=== PATIENT | male | born 1955 | race Caucasian/White ===

== ENCOUNTER 2017-10-05 22:03 | Emergency (ER) | payer MEDICARE, OTHER ==
[2017-10-05 22:16] VITALS: BP 158/96; PULSE 70; RESP 17; TEMP 97.5
--- NOTE | 2017-10-05 22:41 | ED ---
Skin/Abscess/FB HPI - General Chief complaint: Skin/Abscess/Foreign Body Stated complaint: tick on leg Time Seen by Provider: 10/05/17 22:24 Source: patient, family, RN notes reviewed Mode of arrival: ambulatory Limitations: no limitations - History of Present Illness Initial comments: This is a 62-year-old male who presents to the emergency department with chief complaint of possible tick on his left leg. Patient is accompanied by his mother who contributes to history. Patient states that he noticed a black lesion on his left thigh when he came out of the shower this evening. Mother states that she believed it was a tick and tried removing it with a needle. She was unable to remove it. Patient denies pain or swelling. Patient denies any recent illnesses or infections. Denies fevers or chills, chest pain or shortness breath, abdominal pain, nausea or vomiting, diarrhea or constipation, numbness or tingling, headache or dizziness. - Related Data Home Medications Medication Instructions Recorded Confirmed Loratadine [Claritin] 10 mg PO DAILY 04/08/14 04/08/14 Omeprazole 40 mg PO AC-BRKFST 04/08/14 04/08/14 Allergies Allergy/AdvReac Type Severity Reaction Status Date / Time Tetanus Vaccines and Toxoid Allergy Rash/Hives Verified 04/08/14 22:22 [Tetanus Vaccines & Toxoid] Review of Systems ROS Statement: Those systems with pertinent positive or pertinent negative responses have been documented in the HPI. ROS Other: All systems not noted in ROS Statement are negative. Past Medical History Past Medical History: No Reported History History of Any Multi-Drug Resistant Organisms: None Reported Past Surgical History: No Surgical Hx Reported Past Psychological History: No Psychological Hx Reported Smoking Status: Never smoker Past Alcohol Use History: None Reported Past Drug Use History: None Reported General Exam - General Exam Comments Initial Comments: General: Awake and alert, well-developed; in no apparent distress. Mother is at bedside. Patient is developmentally delayed. HEENT: Head atraumatic, normocephalic. Pupils are equal, round and reactive to light. Extraocular movements intact. Oropharynx moist without erythema or exudate. Neck: Supple. Normal ROM. Cardiovascular: Regular rate and rhythm. No murmurs, rubs or gallops. Chest symmetrical. Respiratory: Lungs clear to auscultation bilaterally. No wheezes, rales or rhonchi. Normal respiratory effort with no use of accessory muscles. Musculoskeletal: Normal ROM, no tenderness bilateral upper and lower extremities. Ambulating normally. Skin: [place], warm and dry with a small, black, circular maculopapular lesion mid left thigh. Superficial sunburns to bilateral distal thighs. Neurological: Alert and oriented x3. CN II-XII grossly intact. Answers are appropriate. No focal neuro deficits. Psychiatric: Normal mood and affect. No overt signs of depression or anxiety noted. Limitations: no limitations Course Vital Signs 10/05/17 22:14 Temperature 97.5 F L Pulse Rate 70 Respiratory 17 Rate Blood Pressure 158/96 O2 Sat by Pulse 97 Oximetry Medical Decision Making - Medical Decision Making This is a 62-year-old male who presents to the emergency department with chief complaint of possible tick on his left thigh. On physical examination, there is a small maculopapular black lesion on the left thigh. It is not a tick. Patient does have sunburn on bilateral distal thighs. 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 Vital signs are stable and patient is in no acute distress. He will be given contact information for follow-up to dermatology. Patient and mother are in agreement and voice understanding. All questions were answered. Patient will be discharged home at this time. Disposition Clinical Impression: Skin lesion Disposition: HOME SELF-CARE Condition: Good Instructions: Atypical Mole (ED) Additional Instructions: Please follow-up with dermatology within 1-2 days. Please follow up with primary care provider within 1-2 days. Return to emergency department if symptoms should worsen or any concerns arise. Is patient prescribed a controlled substance at d/c from ED?: No Referrals: Inder Bernardo DO [Primary Care Provider] - 1-2 days Renae George MD [STAFF PHYSICIAN] - 1-2 days Cintia George MD [STAFF PHYSICIAN] - 1-2 days Time of Disposition: 22:41
== END 2017-10-05 22:58 | disposition home or self-care (01) ==
LOC: EC 22:03
DX: L98.8 Other specified disorders of the skin and subcutaneous tissue (principal); L55.9 Sunburn, unspecified; Z79.899 Other long term (current) drug therapy; Z88.7 Allergy status to serum and vaccine
CPT/HCPCS: 99282

== ENCOUNTER 2017-11-10 07:47 | Day surgery (SDC) | payer MEDICARE, OTHER ==
[2017-11-08 10:46] VITALS: BMI 28.5
[~2017-11-10 07:47] MED LIST: LACTATED RINGERS 1,000 ML IV SCH; LIDOCAINE 1% 20 ML VIAL (10MG/ML) FOR IV START INTRADERMA PRN; MIDAZOLAM 2 MG/2 ML VIAL IV PRN
[2017-11-10 08:05] VITALS: TEMP 97.4
[2017-11-10] MEDS ORDERED: PROPOFOL 10 MG/ML 20 ML VIAL IV ONE (08:31)
[2017-11-10] MEDS ORDERED: LIDOCAINE 1% INJ 10MG/ML (20 ML MDV) ONE (08:31)
[2017-11-10] MEDS ORDERED: GLUCAGON 1 MG/ML VIAL ONE (08:31)
--- NOTE | 2017-11-10 08:35 | P.GSHP ---
History of Present Illness H&P Date: 11/10/17 Chief Complaint: Screening colonoscopy This a 62-year-old male referred from Dr. Inder Vences. Patient presents today for screening colonoscopy. He denies a seam GI complaints. He's never colonoscopy before. Past Medical History Past Medical History: GERD/Reflux Additional Past Medical History / Comment(s): MENTALLY CHALLENGED-LIVES WITH MOTHER History of Any Multi-Drug Resistant Organisms: None Reported Past Surgical History: No Surgical Hx Reported Additional Past Surgical History / Comment(s): COLONOSCOPY Past Anesthesia/Blood Transfusion Reactions: No Reported Reaction Smoking Status: Never smoker - Past Family History Mother Family Medical History: No Reported History Medications and Allergies Home Medications Medication Instructions Recorded Confirmed Type Loratadine [Claritin] 10 mg PO DAILY 04/08/14 11/10/17 History Omeprazole 40 mg PO AC-BRKFST 04/08/14 11/10/17 History Allergies Allergy/AdvReac Type Severity Reaction Status Date / Time Tetanus Vaccines and Toxoid Allergy Rash/Hives Verified 11/10/17 07:58 [Tetanus Vaccines & Toxoid] Surgical - Exam Vital Signs Temp Pulse Resp BP Pulse Ox 97.4 F L 65 16 165/96 96 11/10/17 08:04 11/10/17 08:04 11/10/17 08:04 11/10/17 08:04 11/10/17 08:04 - General well developed, well nourished, no distress - Eyes PERRL - ENT normal pinna - Neck no masses - Respiratory normal expansion - Cardiovascular Rhythm: regular - Abdomen Abdomen: soft, non tender Assessment and Plan Assessment: We'll perform screening colonoscopy.
--- NOTE | 2017-11-10 08:52 | P.OP ---
Date of Procedure: 11/10/17 Preoperative Diagnosis: Screening colonoscopy Postoperative Diagnosis: Normal colonoscopy Procedure(s) Performed: Colonoscopy Anesthesia: MAC Surgeon: Venancio Howe Pathology: none sent Condition: stable Disposition: PACU Description of Procedure: PROCEDURE: The patient was placed on the endoscopy table in the lateral position. Digital rectal examination was performed which revealed no abnormalities. The prostate was symmetrical without nodules. Flexible colonoscope was then placed in the patient's anus and passed throughout the entire colon. The ileocecal valve was visualized. The cecum, ascending, transverse, descending and sigmoid colon were normal. The rectum was normal as well. There were no masses, polyps or diverticula noted in the entire colon. SUMMARY OF FINDINGS: Normal colonoscopy.
[2017-11-10 08:59] VITALS: RESP 18
[2017-11-10 09:25] VITALS: BP 144/95; PULSE 56
== END 2017-11-10 09:40 | disposition home or self-care (01) ==
LOC: ORWHC2ENDO 07:47
PROVIDERS: ATTEND Surgery
DX: Z12.11 Encounter for screening for malignant neoplasm of colon (principal); K21.9 Gastro-esophageal reflux disease without esophagitis; F79 Unspecified intellectual disabilities; Z79.899 Other long term (current) drug therapy; Z88.7 Allergy status to serum and vaccine
CPT/HCPCS: J1610; J2001; J2704; G0121; 45378

== ENCOUNTER 2018-06-13 06:44 | Day surgery (SDC) | payer MEDICARE, OTHER ==
[2018-06-08 10:12] VITALS: BMI 24.3
[~2018-06-13 06:44] MED LIST changes: -LACTATED RINGERS 1,000 ML IV SCH; -MIDAZOLAM 2 MG/2 ML VIAL IV PRN
[2018-06-13 07:02] VITALS: RESP 18; TEMP 98
[2018-06-13] MEDS: LACTATED RINGERS 1,000 ML IV SCH ×2 (07:17→07:50)
[2018-06-13] MEDS ORDERED: PROPOFOL 10 MG/ML 20 ML VIAL IV ONE (07:55)
--- NOTE | 2018-06-13 07:57 | P.GSHP ---
History of Present Illness H&P Date: 06/13/18 Chief Complaint: Screening colonoscopy This is a 62-year-old male referred from Dr. Inder Vences. Patient presents today for screening colonoscopy. He denies any significant GI complaints. Past Medical History Past Medical History: GERD/Reflux Additional Past Medical History / Comment(s): MENTALLY CHALLENGED-LIVES WITH MOTHER. 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, seizures as a child, recent elevated BP-no rx, History of Any Multi-Drug Resistant Organisms: None Reported Past Surgical History: No Surgical Hx Reported Additional Past Surgical History / Comment(s): COLONOSCOPY Past Anesthesia/Blood Transfusion Reactions: No Reported Reaction Smoking Status: Never smoker - Past Family History Mother Family Medical History: No Reported History Medications and Allergies Home Medications Medication Instructions Recorded Confirmed Type Loratadine [Claritin] 10 mg PO HS 04/08/14 06/13/18 History Omeprazole [PriLOSEC] 20 mg PO HS 06/08/18 06/13/18 History Allergies Allergy/AdvReac Type Severity Reaction Status Date / Time Tetanus Vaccines and Toxoid Allergy Severe Rash/Hives Verified 06/13/18 07:10 [Tetanus Vaccines & Toxoid] Surgical - Exam Vital Signs Temp Pulse Resp BP Pulse Ox 98 F 70 18 142/87 97 06/13/18 07:00 06/13/18 07:00 06/13/18 07:00 06/13/18 07:00 06/13/18 07:00 - General well developed, well nourished, no distress - Eyes PERRL - ENT normal pinna - Neck no masses - Respiratory normal expansion - Cardiovascular Rhythm: regular - Abdomen Abdomen: soft, non tender Assessment and Plan Assessment: We'll perform screening colonoscopy.
--- NOTE | 2018-06-13 08:18 | P.OP ---
Date of Procedure: 06/13/18 Preoperative Diagnosis: Screening colonoscopy Postoperative Diagnosis: Normal colon Procedure(s) Performed: Colonoscopy Anesthesia: MAC Surgeon: Venancio Howe Pathology: none sent Condition: stable Disposition: PACU Description of Procedure: The patient's placed on the endoscopy table in the lateral position. He received IV sedation. Digital rectal exam was performed which revealed no rebound. The colonoscope was then placed patient anus and passed throughout the entire colon. The colon was quite tortuous. Scope could not be placed into the cecum secondary to tortuosity the colon. Several times made to maneuver the scope however this is impossible. Scope was then withdrawn. The ascending colon, transverse colon, descending colon and sigmoid colon appeared normal. There no polyps or tumors seen scope was then brought back the rectum and this appeared normal. Scope was withdrawn for patient.
[2018-06-13 08:53] VITALS: BP 151/94; PULSE 65
== END 2018-06-13 09:15 | disposition home or self-care (01) ==
LOC: ORWHC2ENDO 06:44
PROVIDERS: ATTEND Surgery
DX: Z12.11 Encounter for screening for malignant neoplasm of colon (principal); Q43.8 Other specified congenital malformations of intestine; K21.9 Gastro-esophageal reflux disease without esophagitis; F79 Unspecified intellectual disabilities; Z88.7 Allergy status to serum and vaccine; Z79.899 Other long term (current) drug therapy
CPT/HCPCS: J2704; G0121